=== PATIENT | female | born 1970 | race African-American/Black ===

== ENCOUNTER 2016-06-06 18:25 | Emergency (ER) | payer OTHER ==
[~2016-06-06] VITALS: Ht 147.3 cm; Wt 72.6 kg
[2016-06-06] MEDS ORDERED: ASPIRIN81 M2 PO (18:39)
[2016-06-06] MEDS ORDERED: DUONEB 2.5-0.5 M3 ML INH (18:40)
[2016-06-06] MEDS ORDERED: VERAPAMIL ER120 MG PO (18:41)
[2016-06-06] MEDS ORDERED: FLEXERIL PO (20:10)
[2016-06-06] MEDS ORDERED: MEDROLDOSEPACK PO (20:10)
[2016-06-06] MEDS ORDERED: MOBIC15 MG PO (21:02)
[2016-06-06 21:12] VITALS: BP 161/86
== END 2016-06-06 21:15 | disposition home or self-care (01) ==
LOC: ER 18:25
DX: S16.1XXA Strain of muscle, fascia and tendon at neck level, initial encounter (principal); M54.5 Low back pain; J45.909 Unspecified asthma, uncomplicated; I10 Essential (primary) hypertension; Z88.8 Allergy status to other drugs, medicaments and biological substances; V49.40XA Driver injured in collision with unspecified motor vehicles in traffic accident, initial encounter; Y93.I9 Activity, other involving external motion; Y92.481 Parking lot as the place of occurrence of the external cause; Y99.8 Other external cause status